=== PATIENT | female | born 1950 | race Caucasian/White ===

== ENCOUNTER 2020-03-16 10:25 | Outpatient (CLI) | payer BC, SELFPAY ==
--- NOTE | ~2020-03-16 | US_ITS ---
EXAMINATION: US venous doppler [facility] DATE: 03/16/2020 11:15 INDICATION: Left lower limb pain. TECHNIQUE: Grayscale ultrasound images without and with compression and Doppler ultrasound images of the left lower extremity veins were obtained. COMPARISON: None. FINDINGS: The visualized portions of left common femoral vein, profunda (deep) femoral vein, femoral vein, popl iteal vein, peroneal veins, posterior tibial veins, and greater saphenous vein outflow are patent. IMPRESSION: 1. No deep venous thrombosis. Reviewed, dictated and finalized at location B. ATTENDANT
== END 2020-03-16 10:26 | disposition home or self-care (01) ==
LOC: ANHIMG 10:33
PROVIDERS: PCP Nurse Practitioner Adult Health; Visit Provider Nurse Practitioner Adult Health
DX: M79.662 Pain in left lower leg (principal)
CPT/HCPCS: 93971

== ENCOUNTER 2020-10-10 13:27 | Outpatient (CLI) | payer BC, SELFPAY ==
--- NOTE | ~2020-10-10 | MR_ITS ---
EXAMINATION: MR knee LT wo con DATE: 10/10/2020 14:15 INDICATION: Left knee pain. TECHNIQUE: Magnetic resonance imaging (MRI) of the left knee was performed without intravenous contra st. Sequences included axial PD-weighted FS FSE, coronal PD-weighted FSE and PD-weighted FS FSE, sagi ttal PD-weighted FSE, and sagittal T2-weighted FS FSE. COMPARISON: Left knee radiographs 09/19/2020 FINDINGS: Medial compartment: There is a complex tear involving body and posterior horn of medial meniscus. There is full-thickness cartilage loss of femoral condyle involving the central and medial articular surface with cortical i rregularity. There is a subchondral fracture of the femoral condyle medial articular surface with sub chondral low signal fracture line and extensive bone marrow edema-like marrow signal intensity. There is full-thickness cartilage loss of tibial condyle medially. There is a subchondral insufficiency fr acture of tibial condyle medially with low signal subchondral fracture line and bone marrow edema. Lateral compartment: There is an undersurface horizontal tear of body of lateral meniscus. There is cartilage surface irre gularity of femoral condyle. There is deep partial-thickness cartilage loss of tibial condyle posteri marvin with mild subchondral edema-like marrow signal intensity. Osteophytes are noted. Patellofemoral compartment: There is deep partial thickness cartilage loss of patellar medial facet. Trochlear cartilage is alee l. There are tiny marginal osteophytes. Ligaments and tendons: The anterior and posterior cruciate ligaments are normal. Medial collateral ligament is intact. There are changes of prior sprain of fibular collateral ligament characterized by thickening and increased signal intensity proximally. There is mild patellar tendinopathy. Fluid: There is a moderate-sized knee joint effusion. There is a ruptured moderate-sized Tong's cyst. There is mild prepatellar and superficial infrapatellar bursitis. IMPRESSION: 1. Subchondral insufficiency fractures of medial femoral condyle and medial tibial condyle. 2. Severe chondrosis of medial compartment and moderate chondrosis of lateral and patellofemoral comp artments. 3. Tears of medial and lateral menisci. 4. Moderate-sized knee joint effusion. 5. Moderate-sized ruptured Tong's cyst. Reviewed, dictated and finalized at location A. IMPRESSION: 1. Subchondral insufficiency fractures of medial femoral condyle and medial tib ial condyle. 2. Severe chondrosis of medial compartment and moderate chondrosis of lateral a nd patellofemoral compartments. 3. Tears of medial and lateral menisci. 4. Moderate-sized knee joint effusion. 5. Moderate-sized ruptured Tong's cyst.
== END 2020-10-10 13:28 | disposition home or self-care (01) ==
PROVIDERS: PCP Nurse Practitioner Adult Health; Visit Provider Orthopaedic Surgery
DX: M25.562 Pain in left knee (principal); M84.452A Pathological fracture, left femur, initial encounter for fracture; M84.462A Pathological fracture, left tibia, initial encounter for fracture; M22.2X2 Patellofemoral disorders, left knee; S83.242A Other tear of medial meniscus, current injury, left knee, initial encounter; S83.282A Other tear of lateral meniscus, current injury, left knee, initial encounter; M25.462 Effusion, left knee; M71.22 Synovial cyst of popliteal space [Baker], left knee
CPT/HCPCS: 73721

== ENCOUNTER 2020-11-03 08:29 | Outpatient (CLI) | payer BC, SELFPAY ==
--- NOTE | 2020-11-03 | EST_ITS ---
Patient Info Name: Mayela Burk Age: 69 years : 1950 Gender: Female Ht: 63 in Wt: 170 lbs BSA: 1.88 m2 HR: 76 bpm BP: 16,288 Heart Rhythm: Sinus Rhythm Exam Date: 11/03/2020 9:27 AM Exam Location: [facility] Patient Status: Outpatient Admit Date: 11/03/2020 Staff Ordering Physician: ShonSilvana NP Attending Provider: ShonSilvana NP Exercise Technologist: Shreya Troy CT Exercise Physician: Adolfo Landis MD Exam Type: CA stress vini w NM Study Info A regadenoson stress test was performed. Summary 1. No abnormal ST/T wave changes with Lexiscan. 2. Frequent PACs noted at rest and during stress. 3. Please correlate with nuclear medicine images, reported separately. 4. No chest discomfort with stress test. Protocol: Lexiscan Stress ECG Details Stage: REST Duration (min): 1 min : 28 sec HR (bpm): 68 SBP (mmHg): 162 DBP (mmHg): 88 Stage: REST Duration (min): 11 min : 50 sec HR (bpm): 76 SBP (mmHg): 162 DBP (mmHg): 88 Stage: STAGE 1 Duration (min): 0 min : 59 sec HR (bpm): 100 SBP (mmHg): 162 DBP (mmHg): 88 Stage: RECOVERY Duration (min): 1 min : 0 sec HR (bpm): 103 SBP (mmHg): 186 DBP (mmHg): 75 Stage: RECOVERY Duration (min): 2 min : 0 sec HR (bpm): 97 SBP (mmHg): 186 DBP (mmHg): 75 Stage: RECOVERY Duration (min): 3 min : 0 sec HR (bpm): 96 SBP (mmHg): 160 DBP (mmHg): 79 Stage: RECOVERY Duration (min): 3 min : 10 sec HR (bpm): 95 SBP (mmHg): 160 DBP (mmHg): 79 Rest HR: 76 bpm Peak HR: 109 bpm Rest Sys BP: 162 mmHg Peak Sys BP: 186 mmHg Max Pred HR: 152 bpm % Max Pred HR: 72 % Target HR: 129 bpm Max RPP: 20,274 bpm*mmHg BP Response: Normal blood pressure response Termination Reason: Completed protocol Cardiac Symptoms: None Total Time: 1 min : 0 sec Rest Rodriguez BP: 88 mmHg Peak Rodriguez BP: 75 mmHg Total Dose: 0.4 mg Resting ECG Normal sinus rhythm. RSR' V1, V2, occ PAC's. Stress ECG No abnormal ST/T wave changes with Lexiscan. Arrhythmias Frequent PACs noted at rest and during stress. Report Signatures
--- NOTE | ~2020-11-03 | NM_ITS ---
EXAMINATION: NM vini stress w perfusion DATE: 11/03/2020 10:23 INDICATION: Other chest pain. Chest tightness. TECHNIQUE: Rest images were obtained following intravenous administration of 9.1 mCi Tc99m tetrofosmi n (Myoview). The patient was infused intravenously with Lexiscan (regadenoson). Then, 29.5 mCi Tc99m tetrofosmin (Myoview) was administered intravenously, and stress images were obtained. Data was recon structed into short axis and horizontal and vertical long axis SPECT images. Gated SPECT images were also obtained. COMPARISON: None. FINDINGS: There is no definite reversible or fixed perfusion abnormality to suggest ischemia or infar ction. There is no segmental wall motion abnormality. Left ventricular ejection fraction measures > 70%. IMPRESSION: 1. No definite ischemia or infarct. 2. Normal left ventricular ejection fraction measuring >70%. Reviewed, dictated and finalized at location A.
== END 2020-11-03 08:30 | disposition home or self-care (01) ==
LOC: ANHCARD 08:33
PROVIDERS: PCP Nurse Practitioner Adult Health; Visit Provider Nurse Practitioner Adult Health
DX: R07.89 Other chest pain (principal)
CPT/HCPCS: 78452; 93017; A9502; J2785

== ENCOUNTER 2021-03-30 11:12 | Outpatient (CLI) | payer BC, SELFPAY ==
--- NOTE | 2021-03-30 | ECG_ITS ---
Measurements Intervals Switzer Rate: 71 P: 45 UT: 187 QRS: 4 QRSD: 80 T: 52 QT: 388 QTc: 423 Interpretive Statements SINUS RHYTHM INCOMPLETE RIGHT BUNDLE BRANCH BLOCK DELAYED PRECORDIAL R/S TRANSITION CONSIDER INFERIOR INFARCT, AGE INDETERMINATE BASELINE WANDER- I, II ABNORMAL ECG Electronically Signed On 03-30-2021 12:09:19 ALTERNATIVE DISPUTE RESOLUTION MEDIATOR by Luis Carmona D.O.
[2021-03-30 12:14] LABS: Hematocrit 38.7 % (37.0-47.0); Hemoglobin 11.9 g/dL (12.0-15.0)
[2021-03-30 12:40] LABS: Albumin Level 4.1 g/dL (3.5-5.1); Estimated Glomerular Filt Rate > 60; Glucose 106 mg/dL (65-110)
[2021-03-30 13:07] LABS: Urine Cotinine NEGATIVE
[2021-03-30 13:24] LABS: Hemoglobin A1C 5.6 % (<5.7)
== END 2021-03-30 11:13 | disposition home or self-care (01) ==
PROVIDERS: PCP Nurse Practitioner Adult Health; Visit Provider Orthopaedic Surgery
DX: M17.12 Unilateral primary osteoarthritis, left knee (principal); Z01.818 Encounter for other preprocedural examination; I45.10 Unspecified right bundle-branch block
CPT/HCPCS: 80307; 82040; 82565; 82947; 83036; 85014; 85018; 93005

== ENCOUNTER 2021-04-15 11:53 | Outpatient (CLI) | payer BC, SELFPAY ==
[2021-04-15 13:19] LABS: Basophils Absolute Auto 0.1 K/mm3 (0.0-0.1); Basophils Percent Auto 0.8 % (0.2-1.2); Eosinophils Absolute Auto 0.4 K/mm3 (0-0.3); Eosinophils Percent Auto 4.4 % (0-4.4); Hematocrit 40.5 % (37.0-47.0); Hemoglobin 12.7 g/dL (12.0-15.0); Immature Granulocyte Absolute 0.02 K/mm3 (0.00-0.031); Immature Granulocyte Percent A 0.2 % (0-0.5); Lymphocytes Absolute Auto 2.39 K/mm3 (0.9-3.2); Lymphocytes Percent Auto 28.5 % (18.3-44.2); Mean Corpuscular HGB Conc 31.4 g/dl (32-36); Mean Corpuscular Hemoglobin 26.9 pg (26-34); Mean Corpuscular Volume 85.8 fl (80-100); Mean Platelet Volume 10.1 fl (7.4-10.4); Monocytes Absolute Auto 0.7 K/mm3 (0.1-0.6); Monocytes Percent Auto 8.1 % (2.6-8.5); Neutrophils Absolute Auto 4.9 K/mm3 (1.3-6.7); Platelet Count Result 289 k/mm3 (150-375); Red Blood Count 4.72 M/mm3 (4.2-5.4); Red Cell Distribution Width 15.1 % (11.5-14.5); White Blood Count 8.4 K/mm3 (4.5-10.0)
== END 2021-04-15 11:54 | disposition home or self-care (01) ==
LOC: ANHSURGERY 11:56
PROVIDERS: PCP Nurse Practitioner Adult Health; Visit Provider Orthopaedic Surgery
DX: Z01.812 Encounter for preprocedural laboratory examination (principal); M17.12 Unilateral primary osteoarthritis, left knee
CPT/HCPCS: 36415; 85025; 87081

== ENCOUNTER 2021-05-11 01:47 | Day surgery (SDC) | payer BC, SELFPAY ==
[2021-04-15 12:05] VITALS: BMI 31.8
--- NOTE | 2021-04-15 12:42 | PC.NURSE ---
Report to the Outpatient Waiting Room, entrance under the green pavilion located off [facility], at time _1130 on date _05/11/21 . OR Time: 1330 . - You and your visitor will be asked a series of questions to screen for COVID 19 for your protection. - A mask is required within the hospital. - Only one visitor is allowed at this time. Patient visitors will be guided where to wait when not with patient. Preoperative COVID Testing Requirements: No COVID Test needed if: (proof is required; if not received patient will have Rapid Test prior to entry) - Patient has received COVID Vaccine at least 14 days prior to procedure date or - Patient has positive COVID test result within last 90 days of surgery date. COVID Test needed if above criteria is not met If not COVID vaccinated a COVID test must be conducted within 72 hours of surgery and patient is asked to isolate self from time of testing until procedure. You will go to the [facility] for your COVID testing. The [facility] site is located at the corner of [address] [facility]. You will only be called if COVID results are positive and your surgeon may reschedule your elective surgery date. Patients may have clear liquids (water, carbonated beverages, clear teas, apple juice) until 3 hours prior to surgery with a maximum of 20 ounces. - No food from midnight until time of surgery - Infants may have breast milk until 4 hours before surgery, infant formula 6 hours prior to surgery. - Children will be allowed to drink immediately following surgery. If applicable, please bring a bottle or sippy cup to assist with drinking. Juice, water, soda, and popsicles are readily available. For infants on formula, please bring formula the day of surgery. Pacifiers are allowed. Take the following medications with a SIP of water the morning of surgery: NONE Medications to discontinue per physician ____ASPIRIN 7 DAYS PRE OP. ALL VITAMINS AND SUPPLEMENTS 3 DAYS PRE OP Date to take last dose_ASPIRIN 05/03/21 AND VITAMINS 05/07/21 Please no make-up, nail romanian, hairspray, perfume, deodorant, or body powder the day of surgery. No jewelry (including any body piercings) or valuables the day of surgery, leave them at home. Please take a shower or bath the night before, or the morning of, surgery with an antibacterial soap. Wear comfortable, loose fitting clothing. Children are encouraged to wear pajamas. - Jewelry must be removed prior to entering the operating room. Rings and piercings that are not removed may be cut off. - The hospital will not accept responsibility for valuables. - Please leave all valuables, including medications, at home the day of surgery. If you are going home after surgery, a licensed lead driver must drive you home. TOTAL JOINT CLASS 04/21/21 AT 10 AM - NO public transportation without another adult. - We recommend that an adult stay with you for 24 hours following discharge. - We also recommend that you do not drive, make important decision, drink alcoholic beverages, or take any drugs that were not prescribed by your health care provider for at least 24 hours after your discharge time. For Pediatric surgeries, we recommend two adults accompany the child home (only one inside the building at this time). Follow any additional instructions given to you from your surgeon. VERBAL instructions given to _PATIENT and asked if any additional questions and then verbalized understanding. Patient advised to call surgeon office or pre surgery nurse liaison [phone] if any additional questions.
[2021-04-15 13:01] VITALS: BP 151/72; PULSE 80; RESP 16; TEMP 37.3; O2SAT 97
[2021-05-11] VITALS (12 sets, daily range): BP systolic 135–158; BP diastolic 55–87; PULSE 80–97; RESP 12–16; TEMP 36.3–36.6; O2SAT 88–100
--- NOTE | ~2021-05-11 | XR_ITS ---
EXAMINATION: XR knee LT 2V DATE: 05/11/2021 12:45 INDICATION: Left knee pain. Postop. TECHNIQUE: 2 views of left knee were obtained. COMPARISON: Left knee radiographs 02/24/2021 FINDINGS: There is a total left knee arthroplasty with patellar resurfacing in near-anatomic alignmen t. No fracture. There is gas in the knee joint and soft tissues, consistent with recent surgery. Ther e is a small knee joint effusion. IMPRESSION: 1. Total left knee arthroplasty in near-anatomic alignment. Reviewed, dictated and finalized at location A. [facility]
--- NOTE | 2021-05-11 08:58 | WPDANESEPPF ---
Anes - Initial Pre Proc Eval Procedure: Operation Date: 05/11/21 10:30 Proposed Procedures p Left Total Knee Arthroplasty - Albin Hagan MD Date/Time: 05/11/21 08:58 Surgeon: Albin Hagan MD Pre Op Diagnosis: primary oa left knee Patient Data Age: 70 Gender: F Height: 1.59 m Weight: 79.4 kg Last Vital Signs Temp 36.6 C 05/11/21 08:43 Pulse 81 05/11/21 08:43 Resp 16 05/11/21 08:43 BP 155/85 H 05/11/21 08:43 Pulse Ox 100 05/11/21 08:43 Allergies Allergy/AdvReac Type Severity Reaction Status Date / Time No Known Allergies Allergy Unknown Verified 05/11/21 08:48 Home Medications Medication Instructions Recorded Confirmed Type atorvastatin 10 mg tablet 10 mg PO HS 08/04/20 05/11/21 History aspirin 81 mg tablet,delayed 81 mg PO DAILY 02/24/21 05/11/21 History release biotin 1 mg capsule 1 mg PO DAILY 02/24/21 05/11/21 History omega 3,6,9 combination no.7 92 mg 92 mg PO DAILY 02/24/21 05/11/21 History (43 mg-22 [id number]) chew tablet cholecalciferol (vitamin D3) 50 mcg PO DAILY 04/15/21 05/11/21 History cyanocobalamin (vitamin B-12) 1,000 mcg PO DAILY 04/15/21 05/11/21 History methylcellulose (laxative) 500 mg 500 mg PO DAILY 04/21/21 05/11/21 History tablet polyethylene glycol 3350 17 17 g PO DAILY 04/21/21 05/11/21 History gram/dose oral powder Patient hx anesthesia problems: none Family hx anesthesia problems: none Results Review: All pre-operative results and documents have been reviewed as part of the pre-operative evaluation. [facility] Past Medical History Medical History Hyperlipidemia Surgical History Surgical History History of colon surgery (~12/2006) Social History Social History Additional smoking assessment comments: DENIES ANY FORM OF TOBACCO USE Alcohol intake: never Living arrangements: with family Spiritual care concerns: No Anes - Eval Final PreProcedure Day of Procedure 05/11/21 08:58 Patient weight: overweight Heart: regular rate and rhythm Lungs: clear to auscultation Airway: Mallampati scale class II Neurological: alert and oriented Last oral intake: >/= 8 hours ASA classification: II Emergent: no Anesthetic plan: proceed Anesthesia type and monitoring: general LMA and standard monitoring Results Review: All pre-operative results and documents have been reviewed as part of the pre-operative evaluation. Informed Consent: The patient's anesthetic plan and its attendant risks and benefits were discussed with the patient/family/POA. Questions were solicited and answers provided to the satisfaction of the patient/family/POA.
[2021-05-11] MEDS: ACETAMINOPHEN 500 MG TABLET 1000 MG PO (09:10)
[2021-05-11] MEDS: LACTATED RINGERS 1,000 ML 30 ML IV CONT ×2 (09:10→12:40)
[2021-05-11] MEDS: TRANEXAMIC ACID 1,000MG/ISO100 1,000 MG/100 ML BAG 200 MG IVPB (09:12)
--- NOTE | 2021-05-11 09:56 | WPDHPUPDATE1 ---
History and Physical Update Update Date/Time: 05/11/21 09:56 History and Physical has been reviewed, including an updated exam of the patient. There are NO changes in the patient's condition. Risks, benefits, and alternatives have been discussed and questions answered. Patient agrees to proceed with procedure.
--- NOTE | 2021-05-11 10:22 | WPDANESPNB ---
Anes - Peripheral Nerve Block Date/Time: 05/11/21 10:22 I have discussed with the patient/family/POA the placement of a peripheral nerve block for post-operative pain management, including associated risks, benefits, complications, and side effects. Alternative methods of post-operative analgesia were detailed. Questions were solicited and answers provided to the satisfaction of the patient/family/POA. Time-Out: A pre-procedural Time-Out was completed immediately before starting the procedure and confirmed: Patient Identification, Site, Procedure, Patient Position and the Availability of Requisite Equipment. Clinical Indications: Acute post-operative pain management requested by the operative surgeon. Nerve Block Insertion Note Anes-nerve block: adductor canal left Patient position: supine Skin prep: chlorhexidine Needle: 22 gauge, stimulating, insulated echogenic needle. Needle length: 80 mm Technique: ultrasound Technique comment: mid 2mg fent 50mcg Injectate: bupivacaine 0.5% with epi 5 mcg/ml (30ml) and dexamethasone (mg) (4) Observations: tolerated well Complications: none Procedure start time:: 1011 Procedure end time:: 1017
[2021-05-11] MEDS: ceFAZolin 2 GM/D5W 50 ML 2 GM/50 ML BAG IVPB (10:25)
--- NOTE | 2021-05-11 12:58 | P.OP_ITS ---
Procedure Note - Detailed Date of Procedure 05/11/21 Pre-op Diagnosis primary oa left knee Post-op Diagnosis same Procedure Performed Left total knee arthroplasty. Surgeon Albin Hagan MD Director Volunteer Services Jennifer Infante PA-C Anesthesia general and regional (subsartorial block) Findings Good bone quality. Moderate medial release. PCL intact. Description of Procedure The patient was given a nerve block preoperatively, and then brought to the operating room. A general anesthetic was administered. The leg was prepped and draped in the usual sterile fashion. The limb was elevated and the tourniquet inflated to 300 mmHg during initial exposure. A longitudinal incision was created along the medial border of the patella and patellar tendon, and a trivector approach to the knee was performed. A moderate medial release was taken. The knee was then flexed. The osteophytes were carefully removed. The intramedullary guide was placed in the femoral canal. The distal femoral resection was then taken with the oscillating saw. The collateral ligaments were carefully protected. The tibia was carefully exposed. The jig was applied, and the proximal tibia was resected according to preoperative plan. The knee was balanced in extension. Appropriate releases were taken where needed. The anterior cruciate ligament and meniscal remnants were removed. The posterior cruciate ligament was preserved. The patella was measured. Patellar resection was carried out with the oscillating saw. The lug holes drilled. The femur was sized and rotation assessed using a combination of gap balancing, posterior referencing, and the AP axis. The 4 in 1 cutting block was used to finish the femoral cuts after equal gaps were assured. The lug holes were drilled. The osteophytes were carefully removed from the back of the knee. The knee was copiously irrigated with antibiotic solution periodically throughout the procedure. The meniscal remnants were removed. The spacer block was used to confirm equal flexion and extension gaps. Further releases were performed as needed. The tibia was sized and broached. The bony surfaces were prepared for cementing with pulsatile lavage. The real tibial component was cemented into position followed by press fitting the femoral component. Excess cement was carefully removed. The patella component was press-fit. Patellar tracking was carefully assessed. No additional releases were required. The wound was closed with #1 Vicryl suture, #2 Quill suture, 0-Quill suture, and 2-0 Quill suture followed by Steri-Strips. A sterile bulky dressing was applied. Meticulous hemostasis was maintained throughout the procedure. There were no complications. The patient was extubated and brought to the recovery room in stable condition after the application of sterile dressing with Dwayne bandage. Implants [employer] Triathlon knee system, low profile cemented tibia size 4, press-fit femoral component size 4 ,and an 11 mm cruciate retaining polyethylene insert. 32 mm asymmetric metal backed Tritanium press-fit patella component. Estimated Blood Loss 100 Tourniquet Time 8 Drains No Packing No Pathology none sent Complications None Condition stable Disposition observation
[2021-05-11] MEDS: ONDANSETRON INJ 4 MG/2 ML VIAL IV PUSH (13:38)
[2021-05-11] MEDS: diphenhydrAMINE HCl INJ 50 MG/ML VIAL 12.5 MG IV PUSH (14:37)
== END 2021-05-11 16:09 | disposition home or self-care (01) ==
PROVIDERS: PCP Nurse Practitioner Adult Health; Visit Provider Orthopaedic Surgery
PROC: (CPT 27447; principal; 2021-05-11 10:30)
DX: M17.12 Unilateral primary osteoarthritis, left knee (principal); G89.18 Other acute postprocedural pain; E78.5 Hyperlipidemia, unspecified; Z79.82 Long term (current) use of aspirin
CPT/HCPCS: 27447; 64447; 36415; 73560; 86850; 86900; 86901; 97110; 97161; A9270; C1713; C1776; J0171; J0690; J1100; J1170; J1200; J1885; J2250; J2270; J2405; J2704; J2795; J3010; J7120

== ENCOUNTER 2024-02-22 12:43 | Outpatient (CLI) | payer BC, SELFPAY ==
--- NOTE | ~2024-02-22 | CT_ITS ---
EXAMINATION: CT sinus wo con DATE: 02/22/2024 13:13 INDICATION: Acute recurrent maxillary sinusitis. TECHNIQUE: Computed tomography (CT) of the paranasal sinuses was performed without intravenous contra st. The dose-length product was 246.39 mGy-cm. Automated exposure control and iterative reconstructio n technique were employed. COMPARISON: None FINDINGS: There is no significant mucosal thickening. No air-fluid levels. Leftward nasal septal can ation. Ostiomeatal units are patent. Mastoids are pneumatized. No mucoperiosteal reaction. IMPRESSION: 1. No significant sinus disease. Reviewed, dictated and finalized at location B.
== END 2024-02-22 12:44 | disposition home or self-care (01) ==
LOC: MICIMG 12:44
PROVIDERS: PCP Otolaryngology; Visit Provider Otolaryngology
DX: J01.01 Acute recurrent maxillary sinusitis (principal)
CPT/HCPCS: 70486